=== PATIENT | male | born 1960 | race Hispanic/Latino ===

== ENCOUNTER 2018-09-02 08:09 | Day surgery (SDC) | payer OTHER ==
--- NOTE | 2018-09-02 11:27 | Cat Scan Report ---
CT ABDOMEN PELVIS WITHOUT CONTRAST: HISTORY: Hydronephrosis with right ureteral stone. COMPARISON: none. TECHNIQUE: Helical CT in 1.25mm intervals without IV contrast. Sagittal and coronal reconstructions. FINDINGS: Lung bases: Normal. Liver: Normal. Biliary system: Normal. Pancreas: Normal. Spleen: Normal. Kidneys/ureters/bladder: The kidneys are normal size and position. Bilateral renal stones are identified. There are approximately 7 or 8 calyceal stones in the right kidney ranging from 1 mm to 5 mm in diameter. There are 3 punctate stones in the superior left kidney. There is moderate right hydronephrosis. 4 right ureteral stones are identified. The largest and most distal right ureteral stone measures 9 x 9 x 15 mm. 3 more proximal stones measure up to 5 mm in diameter. No left ureteral stones. The bladder is unremarkable. Adrenal glands: Normal. Aorta: Normal. Intestines: Within normal limits. Scattered diverticula in the sigmoid colon are noted. Appendix: Normal. Pelvic viscera: Normal. Ascites: None. Adenopathy: None. Musculoskeletal: Intact. Previous bilateral inguinal hernia repair is suspected which appears intact. IMPRESSION: Multiple right ureteral stones as outlined above. Moderate right hydronephrosis. Bilateral renal stones as described. Mild diverticulosis of the sigmoid colon.
[2018-09-02] MEDS ORDERED: SUBLIMAZE ONE (11:37)
[2018-09-02] MEDS ORDERED: XYLOCAINE MPF 2% ONE (11:38)
[2018-09-02] MEDS ORDERED: DIPRIVAN 10 MG/ML IV ONE (11:38)
[2018-09-02] MEDS ORDERED: LACTATED RINGERS 1,000 ML ONE (11:47)
[2018-09-02] MEDS ORDERED: LACTATED RINGERS 1,000 ML IV SCH (12:00)
[2018-09-02] MEDS ORDERED: LEVAQUIN 500MG/100ML 500 MG/100 ML BAG IV NR (12:00)
[2018-09-02] MEDS ORDERED: ZOFRAN ONE (12:31)
[2018-09-02] MEDS ORDERED: DECADRON ONE (12:31)
[2018-09-02] MEDS ORDERED: WATER FOR IRRIG STERILE IR ONE (12:36)
--- NOTE | 2018-09-02 13:24 | Short Stay Summary ---
Short Stay Documentation Date of service: 09/02/18 - History H&P: obtained from office - Allergies and Medications Current Medications: Allergies iodine Allergy (Verified 09/01/18 16:03) Hives Penicillins Allergy (Verified 09/01/18 16:03) Hives RED MEAT Allergy (Uncoded 09/02/18 10:50) Hives Home Medications Medication Instructions Recorded Confirmed Last Taken Type Ketorolac [Toradol] 10 mg PO Q4HR PRN 09/01/18 09/02/18 08/24/14 History Lisinopril [Zestril TAB] 30 mg PO DAILY 09/01/18 09/02/18 09/01/18 22:00 History oxyCODONE /ACETAMINOPHEN [Percocet 1 tab PO Q6HR PRN 09/01/18 09/02/18 08/31/18 History 5/325] Aspirin [Adult Low Dose Aspirin EC] 81 mg PO QDAY 09/02/18 09/02/18 09/01/18 22:00 History Doxycycline [Vibramycin] 100 mg PO Q12HR 09/02/18 09/02/18 09/01/18 History Red Yeast Rice 600 mg PO QDAY 09/02/18 09/02/18 09/01/18 History Active Medications Levofloxacin/Dextrose (Levaquin 500mg/100ml) 500 mg in 100 mls @ 100 mls/hr IV PREOP NR; Protocol Stop: 09/02/18 23:59 Lactated Ringer's (Lactated Ringers) 1,000 mls @ 100 mls/hr IV DIRECT SYLVIA Last Admin: 09/02/18 11:55 Dose: 100 mls/hr Documented by: - Brief post op/procedure progress note Date of procedure: 09/02/18 Pre-op diagnosis: right uret stone 9x15, and then 3 others max 5mm each Post-op diagnosis: same Procedure: cysto, right rpg, right stent right uret esw Anesthesia: GETA Findings: good vis; good frag Surgeon: DANY FLAHERTY Estimated blood loss: minimal Pathology: none Condition: stable - Hospital course Hospital course: [email or web address] - Disposition Condition at discharge: Good Disposition: DC-01 TO HOME OR SELFCARE Short Stay Discharge Plan Follow up with: DR KAYLEIGH [Other] - 7 Days
[2018-09-02] MEDS ORDERED: DILAUDID ONE (13:53)
[2018-09-02] MEDS ORDERED: DILAUDID IV PRN (13:53)
[2018-09-02 14:33] VITALS: BP 138/82
[2018-09-02] MEDS ORDERED: PERCOCET 5/325 PO ONE (14:47)
--- NOTE | 2018-09-06 10:39 | Operative Report ---
PREOPERATIVE DIAGNOSIS: Right ureteral 9 x 15 mm stone plus additional 3 other stones above this. PREOPERATIVE DIAGNOSIS: Right ureteral 9 x 15 mm stone plus additional 3 other stones above this. PROCEDURE: 1. Cystoscopy, right ureteral 6-Japanese stent placement. 2. Right ureteral ESWL. SURGEON: Manan Cordero MD ANESTHESIA: General. SPECIMENS: None. ESTIMATED BLOOD LOSS: Minimal. COMPLICATIONS: None. FINDINGS: On retrograde pyelogram, there was a large stone with smaller stones proximal to that. CLINICAL INDICATIONS: The patient counseled RCBA, antibiotics, SCDs. Past history for the patient passing 5 mm stone, was seen in the office recently with a CT done this morning demonstrating even more stones than when he was in the office. He was counseled on options. He definitely needs a stent and want to go and try the lithotripsy to be done. DESCRIPTION OF PROCEDURE: The patient transferred to OR suite in supine position, anesthesia begun. Biplanar fluoroscopy was used to target the stone, but prior to this, acutely the patient was placed in the dorsal lithotomy position, prepped and draped in standard fashion. A 22-Japanese scope passed. Right ureteral orifice identified. An 8-Japanese cone-tipped passed, contrast injected, filling defect consistent with the stones identified and mild hydroureter and mild hydronephrosis. Glidewire passed up to the renal pelvis. A ____ 6 x 28 double-J stent was passed under fluoroscopic visualization. The wire was removed, nice proximal J, nice distal J within the bladder, seemed to be draining without any significant signs of infection. At this point, the scope was withdrawn. The patient was repositioned into the supine position. Biplanar fluoroscopy was used to target the stone adjacent to the stent. The most distal large stone was targeted. A total of 3000 shocks were delivered, at the end of intermittent repositioning was done as necessary. At the end of the procedure, there was [id number] fragmentation of the stone. The patient was awakened and transferred to PACU in good and stable condition. PLAN: This will definitively due to the stone burden identified on the CT be staged for future additional ESWL and additionally may need ureteroscopy with the stone burden, so I anticipate possible multiple procedures and then staged for future stent removal. JOB# [id number] ATS/NTS
== END 2018-09-02 08:10 | disposition home or self-care (01) ==
LOC: OR 08:09
PROVIDERS: ATTEND Urology
DX: N13.2 Hydronephrosis with renal and ureteral calculous obstruction (principal); I10 Essential (primary) hypertension; G47.30 Sleep apnea, unspecified; M19.90 Unspecified osteoarthritis, unspecified site; Z79.82 Long term (current) use of aspirin; Z79.899 Other long term (current) drug therapy; Z91.041 Radiographic dye allergy status; Z88.0 Allergy status to penicillin; Z91.018 Allergy to other foods; Z72.89 Other problems related to lifestyle; Z98.52 Vasectomy status; Z98.890 Other specified postprocedural states
CPT/HCPCS: 50590; 52332; 74176; A4217; C1758; C1769; C2617; J1100; J1170; J1956; J2405; J2704; J3010; J7120; Q9967